=== PATIENT | female | born 1935 | race Caucasian/White ===

== ENCOUNTER 2018-11-28 09:43 | Emergency (ER) | payer MEDICARE ==
[2018-11-28] MEDS ORDERED: predniSONE 20 MG TAB ONE (10:15)
--- NOTE | 2018-11-28 12:54 | RAD ---
PA AND LATERAL VIEWS CHEST: HISTORY: Cough. FINDINGS: Comparison is made with the exam of 04/10/2015. The heart size is normal. Left-sided pacemaker device remains in place. The aorta is tortuous. The lungs are expanded without focal areas of consolidation, pneumothoraces, or pleural effusions. Bone s are osteopenic. IMPRESSION: No radiographic evidence of acute cardiopulmonary process. POS: [facility]
== END 2018-11-28 10:53 | disposition home or self-care (01) ==
LOC: MADERS 09:43
DX: J45.909 Unspecified asthma, uncomplicated (principal); E78.5 Hyperlipidemia, unspecified; I10 Essential (primary) hypertension; Z79.899 Other long term (current) drug therapy; Z79.82 Long term (current) use of aspirin
CPT/HCPCS: 71046; 94640; J7506; J7620

== ENCOUNTER 2019-12-06 12:28 | Outpatient (CLI) | payer MEDICARE ==
--- NOTE | 2019-12-06 14:22 | RAD ---
LEFT KNEE 4 VIEWS: Date: 12/06/2019 INDICATION: Chronic left knee pain without trauma. FINDINGS: There is moderate to severe osteoarthrosis of the right knee, predominantly thickened patellofemoral and medial femorotibial joint compartments. There is an interarticular body seen within the posterior midline aspect of the knee joint measuring 1.3 cm. There is mild joint capsular distention. There is diffuse osteopenia. IMPRESSION: Moderate to severe osteoarthrosis left knee with interarticular body. POS: [facility]
== END 2019-12-06 12:29 | disposition home or self-care (01) ==
LOC: MADRAD 12:28
PROVIDERS: ATTEND Physician Assistant
DX: M25.562 Pain in left knee (principal); M17.12 Unilateral primary osteoarthritis, left knee; M23.92 Unspecified internal derangement of left knee

== ENCOUNTER 2020-09-05 13:44 | Outpatient (CLI) | payer MEDICARE ==
--- NOTE | 2020-09-05 14:51 | RAD ---
PA AND LATERAL VIEWS CHEST: Date: 09/05/2020 HISTORY: Cough. FINDINGS: Comparison made with exam of 11/28/2018. The heart size is normal. The aorta is tortuous. Left-sided pacemaker device remains in place. No lob ar consolidation, pneumothoraces, or pleural effusions are seen. Bones are osteopenic. IMPRESSION: No acute process. POS: [facility]
== END 2020-09-05 13:45 | disposition home or self-care (01) ==
LOC: MADRAD 13:44
PROVIDERS: ATTEND Physician Assistant
DX: R05 Cough (principal)
CPT/HCPCS: 71046

== ENCOUNTER 2021-10-11 13:07 | Outpatient (CLI) | payer MEDICARE | END 2021-10-11 13:08 | disposition home or self-care (01) | LOC: MADLAB 13:07 → MADRAD 13:08 | PROVIDERS: ATTEND Physician Assistant | DX: R09.89 Other specified symptoms and signs involving the circulatory and respiratory systems (principal); I51.7 Cardiomegaly | CPT/HCPCS: 71046 ==